=== PATIENT | female | born 1935 | race Caucasian/White ===

== ENCOUNTER 2018-10-10 09:36 | Outpatient (REF) | payer MEDICARE ==
[~2018-10-10 09:36] MED LIST: ADULT ASPIRIN L81 MG PO; ALTACE5 MG PO; ANTIVERT OR; ATENOLOL50 MG PO; B-12500 MCG OR; CALCIUM + D600 MG PO; CALCIUM600 M2 PO; CARVEDILOL3.125 MG PO; CEPHALEXIN500 MG OR; CLARITIN10 MG OR; COQ-10100 M1 PO; CRESTOR20 MG PO; DIGOXIN0.25 MG PO; DIOVAN HC1 OR; DIOVAN HC2 PO; FISH OIL1000 MG PO; FLAXSEED OIL1000 MG OR; FLEXERIL5 MG PO; FUROSEMIDE40 MG PO; HYZAAR1 TA2 PO; INDOMETHACIN PO; IRON27 MG OR; IRON325 MG PO; LEVAQUIN500 MG OR; LORTAB5 PO; MECLIZINE25 MG OR; MECLIZINE25 MG PO; METOPROL TAR25 MG PO; NITROSTAT0.4 MG SL; NORVASC PO; NORVASC5 MG OR; NORVASC5 MG PO; OMEGA 31000 MG PO; PEPCID20 MG PO; PLAVIX75 MG OR; PLAVIX75 MG PO; PRILOSEC40 MG PO; REGLAN10 MG OR; ROPINIROLE0.5 MG PO; SALMON OIL OR; ULTRAM50 M1 PO; VITAMIN B-122500 MCG PO
== END 2018-10-10 10:19 | disposition home or self-care (01) ==
LOC: INF 09:36
PROVIDERS: ATTEND Internal Medicine
PROC: 3C1ZX8Z Irrigation of Indwelling Device using Irrigating Substance, External Approach (ICD-10-PCS; principal; 2018-10-10)
DX: Z45.2 Encounter for adjustment and management of vascular access device (principal)

== ENCOUNTER 2019-01-25 09:48 | Observation (INO) | payer MEDICARE ==
[~2019-01-25] VITALS: Ht 157.5 cm; Wt 74.0 kg
[2019-01-25] MEDS ORDERED: LOSARTAN POTASS50 MG PO (10:33)
[2019-01-25] MEDS ORDERED: LOPRESSOR50 M1 PO (10:34)
[2019-01-25] MEDS ORDERED: ATENOLOL50 MG PO (10:36)
[2019-01-25 10:40] LABS: HEMATOCRIT 37.8 % (37.0-47.0); HEMOGLOBIN 12.1 g/dl (12.0-16.0); IMMATURE GRANULOCYTES 0.4 % (0.0-5.0); MEAN CELL VOLUME 95.5 fL CALC (80.0-100.0); MEAN CORPUSCULAR HGB 30.6 pG CALC (26.0-32.0); NEUT# 8.02 thou/uL (2.00-7.15); RED BLOOD COUNT 3.96 mill/uL (4.20-5.60); RED CELL DISTRI WIDTH 13.7 % (11.5-15.5)
[2019-01-25 10:53] LABS: ALBUMIN 4.2 g/dL (3.2-5.0); ALKALINE PHOSPHATASE 89 u/l (38-126); AMYLASE 62 u/l (30-110); ANION GAP 14 (6-22 (CALC)); BILIRUBIN, TOTAL 0.9 mg/dL (0.0-1.4); BUN 19 mg/dL (8-23); BUN/CREATININE RATIO 21 (12-20 (CALC)); CARBON DIOXIDE 23 mmol/l (22-30); CHLORIDE 106 mmol/l (95-108); CREATININE 0.9 mg/dL (0.5-1.0); GFR 60 ML/MIN (>=60 (CALC)); GFR FOR AFR.AMER. > 60 ML/MIN (>=60 (CALC)); LIPASE 76 u/l (23-300); POTASSIUM 4.2 mmol/l (3.5-5.1); SGOT/AST 20 u/l (9-36); SODIUM 138 mmol/l (137-146); TOTAL PROTEIN 6.6 g/dL (6.3-8.2)
[2019-01-25 11:04] LABS: MYOGLOBIN 68 ng/mL (0 - 62)
[2019-01-25 13:19] LABS: URINE BILIRUBIN - DIPSTICK NEGATIVE (NEGATIVE); URINE BLOOD DIPSTICK TRACE-INTACT (NEGATIVE); URINE COLOR YELLOW; URINE GLUCOSE - DIPSTICK NEGATIVE (NEGATIVE); URINE KETONE 15 mg/dL (NEGATIVE); URINE LEUK ESTERASE NEGATIVE (NEGATIVE); URINE NITRITE - DIPSTICK NEGATIVE (Negative); URINE PH 5.5 (4.5-8.0); URINE PROTEIN - DIPSTICK NEGATIVE (NEG-TRACE); URINE SPECIFIC GRAVITY 1.025; URINE UROBILINOGEN - DIPSTICK 0.2 E.U./dL (0.2)
[2019-01-25 13:45] VITALS: BP 188/68
[2019-01-25 15:23] VITALS: BP 190/61
[2019-01-25 17:35] VITALS: BP 156/60
[2019-01-25] MEDS ORDERED: LOSARTAN POT50 MG PO (18:40)
[2019-01-25 19:07] VITALS: BP 109/50
[2019-01-26 00:26] VITALS: BP 143/64
[2019-01-26 04:00] VITALS: BP 126/59
[2019-01-26 05:41] LABS: IMMATURE GRANULOCYTES 0.4 % (0.0-5.0); MEAN CELL VOLUME 97.6 fL CALC (80.0-100.0); MEAN CORPUSCULAR HGB 30.5 pG CALC (26.0-32.0); MEAN CORPUSCULAR HGB CONC 31.3 g/L CALC (32.0-36.0); NEUT# 4.28 thou/uL (2.00-7.15); RED BLOOD COUNT 3.28 mill/uL (4.20-5.60); RED CELL DISTRI WIDTH 14.1 % (11.5-15.5)
[2019-01-26 06:12] LABS: ANION GAP 8 (6-22 (CALC)); BUN 18 mg/dL (8-23); BUN/CREATININE RATIO 19 (12-20 (CALC)); CARBON DIOXIDE 24 mmol/l (22-30); CHLORIDE 107 mmol/l (95-108); CREATININE 0.9 mg/dL (0.5-1.0); GFR 60 ML/MIN (>=60 (CALC)); GFR FOR AFR.AMER. > 60 ML/MIN (>=60 (CALC)); MAGNESIUM 1.7 mg/dL (1.6-2.3); POTASSIUM 3.8 mmol/l (3.5-5.1); SODIUM 135 mmol/l (137-146)
[2019-01-26 08:26] VITALS: BP 137/66
[2019-01-26 11:02] VITALS: BP 125/53
== END 2019-01-26 12:44 | disposition home or self-care (01) ==
LOC: ED 09:48 → ED-I 13:01 → ED 13:17 → MS2 13:18
PROVIDERS: Emergency Medicine; Nurse Practitioner Family; ADMIT Internal Medicine; ATTEND Internal Medicine
DX: K52.9 Noninfective gastroenteritis and colitis, unspecified (principal); I16.0 Hypertensive urgency; I10 Essential (primary) hypertension; T46.5X6A Underdosing of other antihypertensive drugs, initial encounter; I25.10 Atherosclerotic heart disease of native coronary artery without angina pectoris; C91.10 Chronic lymphocytic leukemia of B-cell type not having achieved remission; Z95.1 Presence of aortocoronary bypass graft; Z85.038 Personal history of other malignant neoplasm of large intestine; Z90.49 Acquired absence of other specified parts of digestive tract; Z87.891 Personal history of nicotine dependence; Z91.128 Patient's intentional underdosing of medication regimen for other reason

== ENCOUNTER 2020-05-27 14:25 | Emergency (ER) | payer MEDICARE ==
[~2020-05-27] VITALS: Ht 157.5 cm; Wt 80.0 kg
[~2020-05-27 14:25] MED LIST changes: +FISH OIL CONC1000 MG PO; +IRON PO; +LOPRESSOR50 M1 PO; +LOSARTAN POT50 MG PO; +LOSARTAN POTASS50 MG PO; +LOSARTAN/HCT1 TA2 PO; +MULTIVITAMI9 PO
[2020-05-27 17:26] LABS: ALBUMIN 3.5 g/dL (3.2-5.0); ANION GAP 11 (6-22 (CALC)); BILIRUBIN, TOTAL 0.6 mg/dL (0.0-1.4); BUN 13 mg/dL (8-23); BUN/CREATININE RATIO 13 (12-20 (CALC)); CARBON DIOXIDE 20 mmol/l (22-30); CHLORIDE 104 mmol/l (95-108); GFR 53 ML/MIN (>=60 (CALC)); GFR FOR AFR.AMER. > 60 ML/MIN (>=60 (CALC)); LIPASE 286 u/l (23-300); POTASSIUM 4.1 mmol/l (3.5-5.1); SGOT/AST 17 u/l (9-36); SODIUM 131 mmol/l (137-146); TOTAL PROTEIN 5.8 g/dL (6.3-8.2)
[2020-05-27 17:27] LABS: ALKALINE PHOSPHATASE 117 u/l (38-126)
[2020-05-27 17:46] LABS: HEMATOCRIT 31.3 % (37.0-47.0); MEAN CELL VOLUME 96.6 fL CALC (80.0-100.0); MEAN CORPUSCULAR HGB 30.9 pG CALC (26.0-32.0); MEAN CORPUSCULAR HGB CONC 31.9 g/dL CAL (32.0-36.0); RED BLOOD COUNT 3.24 mill/uL (4.20-5.60)
[2020-05-27 17:47] LABS: BASO% 0 % (0-3); EOS% 0 % (0-8); LYMPH% 54 % (15-41); MONO% 5 % (2-13); NEUT% 41 % (42-76); PLATELET COUNT 335 thou/uL (130-400); RED CELL DISTRI WIDTH 13.6 % (11.5-15.5)
[2020-05-27] MEDS ORDERED: ZOFRAN4 MG/TAB PO (19:05)
[2020-05-27] MEDS ORDERED: KEFLEX500 M1 PO (19:05)
[2020-05-27 20:15] VITALS: BP 152/78
== END 2020-05-27 20:30 | disposition home or self-care (01) ==
LOC: ED 14:25
DX: R11.2 Nausea with vomiting, unspecified (principal); R93.6 Abnormal findings on diagnostic imaging of limbs; I10 Essential (primary) hypertension; C91.10 Chronic lymphocytic leukemia of B-cell type not having achieved remission; Z95.1 Presence of aortocoronary bypass graft; Z85.038 Personal history of other malignant neoplasm of large intestine; Z96.642 Presence of left artificial hip joint

== ENCOUNTER 2021-01-26 07:57 | Emergency (ER) | payer MEDICARE ==
[~2021-01-26] VITALS: Ht 154.9 cm; Wt 67.7 kg
[~2021-01-26 07:57] MED LIST changes: +KEFLEX500 M1 PO; +ZOFRAN4 MG/TAB PO
[2021-01-26] MEDS ORDERED: OMNI-PAC300 MG PO (09:19)
[2021-01-26] MEDS ORDERED: LOSARTAN POTASS50 MG PO (09:50)
[2021-01-26] MEDS ORDERED: ATENOLOL50 MG PO (09:50)
[2021-01-26] MEDS ORDERED: NORVASC5 M1 PO (09:51)
[2021-01-26] MEDS ORDERED: ASPIRIN 81 LOW81 MG PO (09:51)
[2021-01-26] MEDS ORDERED: PERCOCET 5/325M1 TAB PO (09:52)
[2021-01-26 10:01] VITALS: BP 138/72
== END 2021-01-26 10:08 | disposition home or self-care (01) ==
LOC: ED 07:57
PROC: 2W3DX1Z Immobilization of Left Lower Arm using Splint (ICD-10-PCS; principal; 2021-01-26)
DX: M25.532 Pain in left wrist (principal); S50.312A Abrasion of left elbow, initial encounter; L03.114 Cellulitis of left upper limb; I10 Essential (primary) hypertension; I25.10 Atherosclerotic heart disease of native coronary artery without angina pectoris; C91.10 Chronic lymphocytic leukemia of B-cell type not having achieved remission; W18.30XA Fall on same level, unspecified, initial encounter; Y92.008 Other place in unspecified non-institutional (private) residence as the place of occurrence of the external cause; Z95.1 Presence of aortocoronary bypass graft

== ENCOUNTER 2021-12-15 16:42 | Emergency (ER) | payer MEDICARE ==
[~2021-12-15] VITALS: Ht 154.9 cm; Wt 68.2 kg
[2021-12-15] VITALS (14 sets, daily range): BP systolic 104–198; BP diastolic 38–70
[~2021-12-15 16:42] MED LIST changes: +ASPIRIN 81 LOW81 MG PO; +NORVASC5 M1 PO; +OMNI-PAC300 MG PO; +PERCOCET 5/325M1 TAB PO
[2021-12-15 17:57] LABS: BASO% 0 % (0-3); EOS% 1 % (0-8); HEMATOCRIT 32.7 % (37.0-47.0); HEMOGLOBIN 10.2 g/dl (12.0-16.0); IMMATURE GRANULOCYTES 0.3 % (0.0-5.0); LYMPH% 46 % (15-41); MEAN CELL VOLUME 99.4 fL CALC (80.0-100.0); MEAN CORPUSCULAR HGB CONC 31.2 g/dL CAL (32.0-36.0); MONO% 6 % (2-13); NEUT# 6.62 thou/uL (2.00-7.15); NEUT% 47 % (42-76); PLATELET COUNT 238 thou/uL (130-400); RED BLOOD COUNT 3.29 mill/uL (4.20-5.60); RED CELL DISTRI WIDTH 12.7 % (11.5-15.5)
[2021-12-15 18:11] LABS: ALBUMIN 3.8 g/dL (3.2-5.0); BILIRUBIN, TOTAL 0.4 mg/dL (0.0-1.4); C-REACTIVE PROTEIN 4.3 mg/dL (0-0.9); CREATININE 1.1 mg/dL (0.5-1.0); MAGNESIUM 1.7 mg/dL (1.6-2.3); POTASSIUM 3.5 mmol/l (3.5-5.1); TOTAL PROTEIN 6.7 g/dL (6.3-8.2)
[2021-12-15] MEDS ORDERED: BACTRIM DS1 TAB PO (20:19)
== END 2021-12-15 21:07 | disposition home or self-care (01) ==
LOC: ED 16:42
PROVIDERS: Internal Medicine
DX: L03.113 Cellulitis of right upper limb (principal); I10 Essential (primary) hypertension; I25.10 Atherosclerotic heart disease of native coronary artery without angina pectoris; Z85.6 Personal history of leukemia; Z85.038 Personal history of other malignant neoplasm of large intestine; Z95.1 Presence of aortocoronary bypass graft

== ENCOUNTER 2023-09-22 10:25 | Inpatient (IN) | payer MEDICARE ==
[~2023-09-22] VITALS: Ht 154.9 cm; Wt 66.7 kg
[2023-09-22] VITALS (27 sets, daily range): BP systolic 140–214; BP diastolic 54–165
[~2023-09-22 10:25] MED LIST changes: +BACTRIM DS1 TAB PO
[2023-09-22 11:04] LABS: BASO% 0.1 % (0-3); EOS% 0.1 % (0-8); HEMATOCRIT 34.6 % (37.0-47.0); HEMOGLOBIN 10.8 g/dl (12.0-16.0); IMMATURE GRANULOCYTES 0.4 % (0.0-5.0); LYMPH% 30.3 % (15-41); MEAN CELL VOLUME 97.7 fL CALC (80.0-100.0); MEAN CORPUSCULAR HGB 30.5 pG CALC (26.0-32.0); MEAN CORPUSCULAR HGB CONC 31.2 g/dL CAL (32.0-36.0); MONO% 5.9 % (2-13); NEUT# 12.2 thou/uL (2.00-7.15); NEUT% 63.2 % (42-76); RED BLOOD COUNT 3.54 mill/uL (4.20-5.60); RED CELL DISTRI WIDTH 12.9 % (11.5-15.5)
[2023-09-22 11:27] LABS: INTERNATIONAL NORMALIZED RATIO 1.1 RATIO (0.7-1.3); PROTHROMBIN TIME 10.5 SECONDS (9.0-12.5)
[2023-09-22 11:31] LABS: BILIRUBIN, TOTAL 0.6 mg/dL (0.02-1.3); CHOLESTEROL HDL RATIO 2.2 (<4.4 (CALC)); CREATININE 1.2 mg/dL (0.5-1.0); TOTAL PROTEIN 6.1 g/dL (6.3-8.2)
[2023-09-22] MEDS ORDERED: METOPROLOL TARTRATE 5 MG/5 ML VIAL IV ONE (11:55)
[2023-09-22] MEDS ORDERED: MORPHINE SULFATE 4 MG/ML VIAL IV ONE (11:55)
[2023-09-22 12:35] LABS: URINE BILIRUBIN - DIPSTICK Negative (NEGATIVE); URINE BLOOD DIPSTICK Trace-intact (NEGATIVE); URINE GLUCOSE - DIPSTICK Negative (NEGATIVE); URINE KETONE Negative (NEGATIVE); URINE LEUK ESTERASE Negative (NEGATIVE); URINE NITRITE - DIPSTICK Negative (Negative); URINE PH 5.5 (4.5-8.0); URINE PROTEIN - DIPSTICK Trace mg/dL (NEG-TRACE); URINE UROBILINOGEN - DIPSTICK 0.2 E.U./dL (0.2)
[2023-09-22 12:36] LABS: URINE COLOR Yellow
[2023-09-22 14:28] LABS: BASO% 0.2 % (0-3); EOS% 0.1 % (0-8); HEMOGLOBIN 10.4 g/dl (12.0-16.0); IMMATURE GRANULOCYTES 0.3 % (0.0-5.0); LYMPH% 35.4 % (15-41); MEAN CELL VOLUME 96.5 fL CALC (80.0-100.0); MEAN CORPUSCULAR HGB 30.4 pG CALC (26.0-32.0); MEAN CORPUSCULAR HGB CONC 31.5 g/dL CAL (32.0-36.0); MONO% 6.2 % (2-13); NEUT# 10.06 thou/uL (2.00-7.15); NEUT% 57.8 % (42-76); RED BLOOD COUNT 3.42 mill/uL (4.20-5.60); RED CELL DISTRI WIDTH 12.7 % (11.5-15.5)
[2023-09-22] MEDS ORDERED: CLINDAMYCIN PHOSPHATE 50 ML IV ONE (15:05)
[2023-09-22] MEDS ORDERED: VANCOMYCIN HCL 1 GM in SODIUM CHLORIDE 0.9% 250 ML IV ONE (15:05)
[2023-09-22] MEDS ORDERED: VANCOMYCIN HCL 1 GM in SODIUM CHLORIDE 0.9% 250 ML IV SCH (15:50)
[2023-09-22] MEDS ORDERED: MAGNESIUM HYDROXIDE 30 ML UDC PO PRN (15:50)
[2023-09-22] MEDS ORDERED: DiphenhydrAMINE HCL 50 MG/ML SDV IV PRN (15:50)
[2023-09-22] MEDS ORDERED: MORPHINE SULFATE 4 MG/ML VIAL IV PRN (15:50)
[2023-09-22] MEDS ORDERED: ACETAMINOPHEN 325 MG/TAB PO PRN (15:50)
[2023-09-22] MEDS ORDERED: LOSARTAN Potassium 50 MG/TAB PO SCH (15:53)
[2023-09-22] MEDS ORDERED: amLODIPine BESYLATE 5 MG/TAB PO SCH (15:53)
[2023-09-22] MEDS ORDERED: KETOROLAC TROMETHAMINE 15 MG/ML SDV IV PRN (15:55)
[2023-09-22] MEDS ORDERED: hydrALAZINE HCL 20 MG/ML VIAL(1 ML) IV PRN (15:55)
[2023-09-22] MEDS ORDERED: SODIUM CHLORIDE 0.9% 1,000 ML IV PRN (15:55)
[2023-09-22] MEDS ORDERED: LABETALOL HCL 100 MG/TAB PO SCH (21:00)
[2023-09-22] MEDS ORDERED: CLARIFY DOSE IV SCH (21:00)
[2023-09-22] MEDS ORDERED: ENOXAPARIN SODIUM 30 MG/0.3 ML INJ SC SCH (21:00)
[2023-09-23 03:42] VITALS: BP 126/49
[2023-09-23 05:35] LABS: BASO% 0.2 % (0-3); HEMATOCRIT 31.5 % (37.0-47.0); HEMOGLOBIN 9.7 g/dl (12.0-16.0); IMMATURE GRANULOCYTES 0.3 % (0.0-5.0); LYMPH% 38.4 % (15-41); MEAN CELL VOLUME 100.3 fL CALC (80.0-100.0); MEAN CORPUSCULAR HGB 30.9 pG CALC (26.0-32.0); MEAN CORPUSCULAR HGB CONC 30.8 g/dL CAL (32.0-36.0); NEUT# 5.41 thou/uL (2.00-7.15); NEUT% 52.1 % (42-76); RED BLOOD COUNT 3.14 mill/uL (4.20-5.60)
[2023-09-23 05:53] LABS: ALKALINE PHOSPHATASE 57 u/l (38-126); ANION GAP 10 (6-22 (CALC)); BILIRUBIN, TOTAL 0.6 mg/dL (0.02-1.3); BUN 17 mg/dL (8-23); BUN/CREATININE RATIO 18 (12-20 (CALC)); CARBON DIOXIDE 21 mmol/l (22-30); CHLORIDE 109 mmol/l (95-108); GFR FOR AFR.AMER. > 60 ML/MIN (>=60 (CALC)); GFR OTHER RACES 52 ML/MIN (>=60 (CALC)); MAGNESIUM 1.7 mg/dL (1.6-2.3); POTASSIUM 4.2 mmol/l (3.5-5.1); SGOT/AST 22 u/l (9-36); SODIUM 135 mmol/l (137-146); TOTAL PROTEIN 5.3 g/dL (6.3-8.2)
[2023-09-23 05:54] LABS: ALBUMIN 3.1 g/dL (3.2-5.0)
[2023-09-23 07:20] VITALS: BP 147/48
[2023-09-23] MEDS ORDERED: CLARIFY DOSE SC SCH (09:00)
[2023-09-23] MEDS ORDERED: ASPIRIN 81 MG/TAB PO SCH (09:00)
[2023-09-23] MEDS ORDERED: guaiFENesin-CODEINE 200-20 MG/10 ML UDC PO PRN (11:30)
[2023-09-23] MEDS ORDERED: GUAIFENESIN 200 MG/10 ML UDC PO SCH (12:00)
[2023-09-23] MEDS ORDERED: Pantoprazole Sodium 40 MG VIAL (Protonix) IV SCH (13:00)
[2023-09-23] MEDS ORDERED: VANCOMYCIN HCL 1 GM in SODIUM CHLORIDE 0.9% 250 ML IV SCH (15:00)
[2023-09-23 18:31] VITALS: BP 141/47
[2023-09-23 19:00] VITALS: BP 141/47
[2023-09-23] MEDS ORDERED: ENOXAPARIN SODIUM 40 MG/0.4 ML SYR SC SCH (21:00)
[2023-09-24] VITALS (7 sets, daily range): BP systolic 148–197; BP diastolic 48–73
[2023-09-24 05:57] LABS: BASO% 0.4 % (0-3); EOS% 2.2 % (0-8); HEMATOCRIT 29.5 % (37.0-47.0); IMMATURE GRANULOCYTES 0.4 % (0.0-5.0); LYMPH% 37.5 % (15-41); MEAN CELL VOLUME 102.4 fL CALC (80.0-100.0); MEAN CORPUSCULAR HGB 31.3 pG CALC (26.0-32.0); MEAN CORPUSCULAR HGB CONC 30.5 g/dL CAL (32.0-36.0); MONO% 8.5 % (2-13); NEUT# 4.37 thou/uL (2.00-7.15); RED BLOOD COUNT 2.88 mill/uL (4.20-5.60)
[2023-09-24 06:12] LABS: ALBUMIN 2.7 g/dL (3.2-5.0); BILIRUBIN, TOTAL 0.4 mg/dL (0.02-1.3); C-REACTIVE PROTEIN 8.7 mg/dL (0-0.9); CREATININE 1.1 mg/dL (0.5-1.0); MAGNESIUM 1.7 mg/dL (1.6-2.3); POTASSIUM 3.8 mmol/l (3.5-5.1); TOTAL PROTEIN 4.8 g/dL (6.3-8.2)
[2023-09-24 09:56] LABS: HEMATOCRIT 32.8 % (37.0-47.0); HEMOGLOBIN 10.2 g/dl (12.0-16.0)
[2023-09-24] MEDS ORDERED: CEFTRIAXONE SODIUM IV SCH (16:00)
[2023-09-24] MEDS ORDERED: SODIUM CHLORIDE 0.9% IV SCH (16:00)
[2023-09-24] MEDS ORDERED: LABETALOL HCL 100 MG/TAB PO SCH (21:00)
[2023-09-25 00:46] VITALS: BP 149/52
[2023-09-25 03:44] VITALS: BP 168/58
[2023-09-25 06:36] VITALS: BP 162/62
[2023-09-25 08:48] VITALS: BP 162/62
[2023-09-25] MEDS ORDERED: DOXYCYCLINE100 MG PO (11:31)
== END 2023-09-25 14:04 | disposition home health service (06) | DRG 603 ==
LOC: ED 10:25 → ED-I 11:13 → ED 15:30 → MS2 15:31
PROVIDERS: Emergency Medicine; ADMIT Student in an Organized Health Care Education/Training Program; ATTEND Student in an Organized Health Care Education/Training Program
DX: L03.114 Cellulitis of left upper limb (principal); C91.10 Chronic lymphocytic leukemia of B-cell type not having achieved remission; I10 Essential (primary) hypertension; I25.10 Atherosclerotic heart disease of native coronary artery without angina pectoris; E78.5 Hyperlipidemia, unspecified; Z95.1 Presence of aortocoronary bypass graft; Z87.891 Personal history of nicotine dependence
CPT/HCPCS: J1650; S0164